=== PATIENT | female | born 1970 | race African-American/Black ===

== ENCOUNTER 2019-11-27 10:46 | Emergency (ER) | payer OTHER ==
[~2019-11-27] VITALS: Ht 165.1 cm; Wt 80.0 kg
[2019-11-27] MEDS ORDERED: KETOROLAC 15MG/ML VIAL IV ONE (11:45)
[2019-11-27] MEDS ORDERED: SODIUM CHLORIDE 0.9% 1,000 ML IV ONE (11:45)
[2019-11-27 11:51] LABS: BASOPHILS % 0.9 % (0.0-2.0); HEMATOCRIT. 36.3 % (36.0-48.0); HEMOGLOBIN. 12.1 g/dL (12.0-16.0); LYMPHOCYTES % 43.2 % (20.0-50.0); MEAN CORPUSCULAR HEMOGLOBIN 31.2 pg (28.0-32.0); MEAN CORPUSCULAR VOLUME 93.2 fL (81.0-99.0); MEAN PLATELET VOLUME 8.4 fl (7.4-10.4); MONOCYTES % 10.4 % (2.0-8.0); NEUTROPHILS % 38.5 % (40.0-76.0); PLATELET 233 x1000/uL (130-400); RED BLOOD CELL COUNT 3.89 mill/uL (4.2-5.4); RED CELL DISTRIBUTION WIDTH 13.9 % (11.6-14.6)
[2019-11-27 11:53] LABS: CHLORIDE 109 mEq/L (98-107)
[2019-11-27 12:01] LABS: CREATINE KINASE 86 IU/L (26-192)
[2019-11-27 12:37] LABS: CLARITY URINE CLEAR (CLEAR); COLOR URINE YELLOW (YELLOW); KETONES URINE NEGATIVE (NEGATIVE); LEUKOCYTE ESTERASE URINE NEGATIVE (NEGATIVE); NITRITE URINE NEGATIVE (NEGATIVE); OCCULT BLOOD URINE 1+ (NEGATIVE); PROTEIN URINE NEGATIVE (NEGATIVE); SPECIFIC GRAVITY URINE 1.005 (1.005-1.030); UROBILINOGEN URINE 0.2 E.U./dL (0.2-1.0)
[2019-11-27] MEDS ORDERED: ASPIRIN 81MG TABLET PO ONE (13:00)
[2019-11-27 16:37] VITALS: BP 147/82
== END 2019-11-27 16:49 | disposition short-term general hospital (02) ==
LOC: ER 11:12 → CANBEDREQ 20:37
DX: R00.2 Palpitations (principal); M79.18 Myalgia, other site; R19.7 Diarrhea, unspecified
CPT/HCPCS: 36415; 71045; 80053; 81003; 82550; 83880; 84484; 85025; 93005; 96374; 99285; J1885; J7030; Z7610